=== PATIENT | female | born 1975 | race Two or more races ===

== ENCOUNTER → 2017-09-18 | Emergency (ER) | payer OTHER ==
[~2017-09-18] VITALS: Ht 157.5 cm; Wt 73.5 kg
[~2017-09-18] MED LIST: ATABEX EC CAPL1 EACH; METHYLDOPA250 MG
== END | disposition home or self-care (01) ==
LOC: ER 07:21
DX: B34.9 Viral infection, unspecified (principal)

== ENCOUNTER 2018-02-17 06:27 | Inpatient (IN) | payer OTHER ==
[~2018-02-17] VITALS: Ht 154.9 cm; Wt 83.9 kg
== END 2018-02-20 08:55 | disposition home or self-care (01) | DRG 781 ==
LOC: OBS/DEL 06:27 → LDR 02-18 07:23 → OB/GYN 02-19 08:29
PROC: 4A1HXCZ Monitoring of Products of Conception, Cardiac Rate, External Approach (ICD-10-PCS; principal; 2018-02-18)
DX: O23.33 Infections of other parts of urinary tract in pregnancy, third trimester (principal); O47.03 False labor before 37 completed weeks of gestation, third trimester; O09.523 Supervision of elderly multigravida, third trimester

== ENCOUNTER 2018-03-02 11:57 | Inpatient (IN) | payer OTHER ==
[~2018-03-02] VITALS: Ht 157.5 cm; Wt 85.3 kg
== END 2018-03-05 15:34 | disposition home or self-care (01) | DRG 775 ==
LOC: OBS/DEL 11:57 → SURG-SUITE 22:44 → LDR 22:44 → OB/GYN 03-03 00:56 → SURG-SUITE 03-03 01:23
PROC: 10E0XZZ Delivery of Products of Conception, External Approach (ICD-10-PCS; principal; 2018-03-03)
PROC: 4A033R1 Measurement of Arterial Saturation, Peripheral, Percutaneous Approach (ICD-10-PCS; 2018-03-03)
PROC: 4A1HXCZ Monitoring of Products of Conception, Cardiac Rate, External Approach (ICD-10-PCS; 2018-03-03)
DX: O60.14X0 Preterm labor third trimester with preterm delivery third trimester, not applicable or unspecified (principal); O99.824 Streptococcus B carrier state complicating childbirth; O09.523 Supervision of elderly multigravida, third trimester; Z3A.36 36 weeks gestation of pregnancy; Z37.0 Single live birth